=== PATIENT | female | born 1955 | race Hispanic/Latino ===

== ENCOUNTER 2018-11-27 19:44 | Observation (INO) | payer BC ==
[2018-11-27 20:10] VITALS: BMI 23.0
[2018-11-27] MEDS ORDERED: Oxycodone/Acetaminophen 5/325 mg Tab PO STA (20:12)
[2018-11-27] MEDS ORDERED: Naproxen 550 mg Tab PO STA (20:20)
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
[2018-11-27 21:33] LABS: BASO # 0.02 K/mm3 (0.0-2.0); BASO % 0.2 % (0.0-3.0); EOS # 0.1 (0.0-0.7); HEMOGLOBIN 14.4 g/dL (12.0-16.0); LYMPH # 1.2 (1.2-3.4); LYMPH % 13.9 % (22.0-35.0); MEAN CORPUSCULAR HEMOGLOBIN 29.6 pg (25.0-35.0); MEAN CORPUSCULAR HGB CONC 34.4 g/dl (31.0-37.0); MEAN PLATELET VOLUME 9.9 fl (7.0-11.0); MONO # 0.6 (0.1-0.6); MONO % 6.9 % (1.0-6.0); RBC 4.87 10^6/uL (3.5-6.1); RED CELL DISTRIBUTION WIDTH 12.6 % (11.5-14.5); WHITE BLOOD COUNT 8.9 10^3/uL (4.5-11.0)
[2018-11-27 21:42] LABS: INR 1.05; PARTIAL THROMBOPLASTIN TIME 30.9 Seconds (26.9-38.3); PROTHROMBIN TIME 11.7 SECONDS (9.4-12.5)
[2018-11-27 21:43] LABS: ALB/GLOB RATIO 1.2 (1.1-1.8); ALBUMIN 4.7 g/dL (3.0-4.8); BLOOD UREA NITROGEN 21 mg/dL (7-21); CALCIUM 9.7 mg/dL (8.4-10.5); GFR NON-AFRICAN AMERICAN > 60
[2018-11-27 22:03] LABS: ALT/SGPT 23 U/L (7-56); AST/SGOT 44 U/L (14-36)
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
[2018-11-28] MEDS ORDERED: Oxycodone/Acetaminophen 2.5/325 mg Tab PO PRN (00:21)
[2018-11-28] MEDS ORDERED: POLYETHYLENE GLYCOL 3350 17 GM/Dose PACKET PO PRN (00:27)
[2018-11-28] MEDS: Lactated Ringer's 1,000 ML IV SCH ×2 (00:31→13:44)
[2018-11-28] MEDS: Oxycodone/Acetaminophen 5/325 mg Tab PO PRN (02:01)
[2018-11-28] MEDS: Levothyroxine 50 MCG TAB PO SCH (06:18)
[2018-11-28 08:01] LABS: BASO # 0.02 K/mm3 (0.0-2.0); BASO % 0.3 % (0.0-3.0); EOS # 0.1 (0.0-0.7); EOS % 1.4 % (1.5-5.0); LYMPH # 1.7 (1.2-3.4); LYMPH % 27.9 % (22.0-35.0); MEAN CELL VOLUME 86.1 fl (80.0-105.0); MEAN CORPUSCULAR HEMOGLOBIN 28.7 pg (25.0-35.0); MEAN CORPUSCULAR HGB CONC 33.3 g/dl (31.0-37.0); MEAN PLATELET VOLUME 9.6 fl (7.0-11.0); MONO # 0.6 (0.1-0.6); MONO % 9.7 % (1.0-6.0); RBC 4.32 10^6/uL (3.5-6.1); RED CELL DISTRIBUTION WIDTH 12.6 % (11.5-14.5); WHITE BLOOD COUNT 6.2 10^3/uL (4.5-11.0)
[2018-11-28 08:12] LABS: HEMOGLOBIN 12.4 g/dL (12.0-16.0)
[2018-11-28 08:39] LABS: FREE T4 1.27 ng/dL (0.78-2.19)
[2018-11-28 08:41] LABS: LDL CHOLESTEROL 74 mg/dL (0-129)
[2018-11-28 08:42] LABS: ALB/GLOB RATIO 1.2 (1.1-1.8); ALBUMIN 3.7 g/dL (3.0-4.8); ALT/SGPT 26 U/L (7-56); AST/SGOT 28 U/L (14-36); BLOOD UREA NITROGEN 19 mg/dL (7-21); GFR NON-AFRICAN AMERICAN > 60; HDL CHOLESTEROL 40 mg/dL (29-60)
[2018-11-28] MEDS: Metoprolol Succinate 25 mg XL Tab PO SCH (09:55)
--- NOTE | 2018-11-28 11:13 | CARD ---
APPROVED REPORT Date of service: 11/27/2018 EKG Measurement Heart [id number] <Conclusion> Sinus rhythm with short IA Otherwise normal ECG
[2018-11-28] MEDS ORDERED: Midazolam 2 MG/2 ML VIAL ONE (12:24)
[2018-11-28] MEDS ORDERED: Propofol 10 mg/ml Inj (20 ML) ONE (12:24)
[2018-11-28] MEDS ORDERED: Bupivacaine 0.25% Inj(30mL) ONE (12:31)
[2018-11-28] MEDS ORDERED: EPINEPHrine 1 mg/ml (1:1000) Inj ONE (12:31)
[2018-11-28] MEDS ORDERED: Phenylephrine 10 mg/ml Inj ONE (12:58)
--- NOTE | 2018-11-28 13:05 | RAD ---
Date of service: 11/27/2018 HISTORY: admission COMPARISON: None available. FINDINGS: LUNGS: Lung swann appear mildly hyperinflated; rule underlying COPD.. Mild bibasilar atelectasis and or scarring changes right greater than left. Tiny nodular density noted in the lung apices bilaterally possibly representing small granulomata. PLEURA: No significant pleural effusion identified, no pneumothorax apparent. CARDIOVASCULAR: No aortic atherosclerotic calcification present. Normal cardiac size. No pulmonary vascular congestion. OSSEOUS STRUCTURES: No significant abnormalities. VISUALIZED UPPER ABDOMEN: Normal. OTHER FINDINGS: None. IMPRESSION: Lung swann appear mildly hyperinflated; rule underlying COPD.. Mild bibasilar atelectasis and or scarring changes right greater than left. Tiny nodular density noted in the lung apices bilaterally possibly representing small granulomata.
--- NOTE | 2018-11-28 13:12 | RAD ---
Date of service: 11/27/2018 PROCEDURE: Radiographs of the right elbow. HISTORY: elbow pain s/p trauma COMPARISON: Comparison made with concurrent radiographs of the right humerus and right forearm. FINDINGS: BONES: Mildly displaced comminuted fracture of the proximal right ulna. There is also a comminuted apparent intra-articular fracture of the neck of the radius. Surrounding soft tissue swelling. In situ ORIF plate attached to the distal right radius... Old unfused fracture deformity of distal ulna styloid. JOINTS: Normal. No osteoarthritis. SOFT TISSUES: Normal. JOINT EFFUSION: None. OTHER FINDINGS: None. IMPRESSION: Mildly displaced comminuted fracture of the proximal right ulna. There is also a comminuted apparent intra-articular fracture of the neck of the radius. Surrounding soft tissue swelling. In situ ORIF plate attached to the distal right radius... Old unfused fracture deformity of distal ulna styloid.
--- NOTE | 2018-11-28 13:13 | RAD ---
PROCEDURE: Radiographs of the Right Forearm HISTORY: arm pain s/p trauma COMPARISON: Correlation made with concurrent radiographs of the left elbow and left forearm. TECHNIQUE: Frontal and lateral views obtained. FINDINGS: BONES: There is a mildly displaced comminuted fracture of the proximal right ulna.. There is also a comminuted apparent intra-articular fracture of the neck of the radius as well. There is moderate surrounding soft tissue swelling.. Note also made of an in situ ORIF attached to the distal right radius. JOINT SPACES: Joint spaces appear relatively intact so far as can be determined OTHER FINDINGS: None. IMPRESSION: There is a mildly displaced comminuted fracture of the proximal right ulna. There is also a comminuted apparent intra-articular fracture of the neck of the radius. Surrounding soft tissue swelling. In situ ORIF plate attached to the distal right radius... Old unfused fracture deformity of distal ulna styloid.
--- NOTE | 2018-11-28 13:14 | RAD ---
PROCEDURE: Radiographs of the right humerus. HISTORY: s/p truama COMPARISON: None. FINDINGS: Note that the distal right humerus incompletely visualized on this exam BONES: Normal. No fracture or focal lesion. SOFT TISSUES: Normal. OTHER FINDINGS: None. IMPRESSION: No evidence of acute displaced fracture of the right humerus
[2018-11-28] MEDS ORDERED: Succinylcholine 200 mg/10 ml Inj IV ONE (13:15)
[2018-11-28] MEDS ORDERED: CeFAZolin 1 gm in NS 100ml IVPB ONE (13:25)
[2018-11-28] MEDS ORDERED: Lidocaine 1% w Epi 1:100,000 Inj ONE (15:24)
[2018-11-28] MEDS ORDERED: HYDROmorphone 0.5 mg/0.5 ml ISec IVP PRN (15:50)
--- NOTE | 2018-11-28 15:57 | PCM.ANESB4 ---
Infraclavicular Block - Femoral Nerve Block Date of Procedure: 11/28/18 Anesthesiologist: Dr. Gonzalez Pre-Procedure Diagnosis: S/P ORIF right elbow fracture Post-Procedure Diagnosis: S/P ORIF right elbow fracture Procedure Performed: Brachial Plexus at the Infraclavicular area Right - Procedure Infraclavicular Block: The procedure was explained to the patient that it is for the post-operative pain management. Consent was obtained after a thorough discussion with the patient regarding the benefits and possible complications of local anesthetic block of the brachial plexus at the infraclavicular area. The patient was brought to the operating room and standard monitors were applied. Time-out was held with the circulating nurse to confirm the correct surgery and the appropriate block. After the surgery while still under general anesthesia, patient's head was gently rotated away from the operative right elbow and the area medial to the coracoid process and inferior to the clavicle was carefully palpated. The ultrasound transducer was then applied to the skin in the transverse plane and the brachial plexus was visualized surrounding the axillary artery and deep to the pectoralis major and minor muscles. After thorough identification, this area was prepped with Chloraprep solution. At this point, a #21 gauge Stimuplex 4-inch needle was inserted cephalad to the ultrasound transducer and inferior to the clavicle in-plane towards the posterior aspect of the axillary artery. Needle advancement was performed carefully under ultrasound visualization. After repeated negative aspiration, 5cc of 0.25% Bupivacaine with 1:200,000 epinephrine was injected and this was followed with 25cc of 0.25% Bupivacaine with 1:200,000 epinephrine. Under ultrasound guidance the local anesthetics were observed surrounding the cords of the brachial plexus. The needle was removed intact and sterile dressing was applied. The patient had stable vital signs, was conscious and in no apparent distress. The patient tolerated the infraclavicular block of the brachial plexus well with stable vital signs was subsequently awaken from anesthesia. Then transported to PACU.
[2018-11-28] MEDS ORDERED: Lactated Ringer's 1,000 ML IV SCH (16:00)
--- NOTE | 2018-11-28 17:41 | PCM.SURG1 ---
Surgeon's Initial Post Op Note - Surgeon's Notes Surgeon: trent Mounter Automatic: vanessa Type of Anesthesia: General Endo Pre-Operative Diagnosis: R elbow Montagia fracture Operative Findings: see dictation Post-Operative Diagnosis: same Operation Performed: radial head arthroplasty and proximal ulna ORIF Specimen/Specimens Removed: radial head Estimated Blood Loss: EBL {In ML}: 10 Post-Op Condition: Good Date of Surgery/Procedure: 11/28/18 Time of Surgery/Procedure: 01:00
[2018-11-29] MEDS: Levothyroxine 50 MCG TAB PO SCH (04:59)
[2018-11-29] MEDS: Oxycodone/Acetaminophen 5/325 mg Tab PO PRN (07:00)
[2018-11-29 07:51] LABS: BASO # 0.01 K/mm3 (0.0-2.0); BASO % 0.1 % (0.0-3.0); EOS % 0.2 % (1.5-5.0); HEMOGLOBIN 12.4 g/dL (12.0-16.0); LYMPH % 11.4 % (22.0-35.0); MEAN CORPUSCULAR HEMOGLOBIN 28.9 pg (25.0-35.0); MEAN CORPUSCULAR HGB CONC 33.6 g/dl (31.0-37.0); MONO % 12.1 % (1.0-6.0); RBC 4.29 10^6/uL (3.5-6.1); RED CELL DISTRIBUTION WIDTH 12.7 % (11.5-14.5); WHITE BLOOD COUNT 8.3 10^3/uL (4.5-11.0)
[2018-11-29 08:11] LABS: ALB/GLOB RATIO 1.2 (1.1-1.8); ALBUMIN 3.9 g/dL (3.0-4.8); ALT/SGPT 17 U/L (7-56); AST/SGOT 32 U/L (14-36); BLOOD UREA NITROGEN 11 mg/dL (7-21); CALCIUM 9.2 mg/dL (8.4-10.5); GFR NON-AFRICAN AMERICAN > 60
--- NOTE | 2018-11-29 08:55 | CT ---
Date of service: 11/27/2018 PROCEDURE: HISTORY: right elbow fracture COMPARISON: TECHNIQUE: FINDINGS: Slightly comminuted, and slightly displaced intra-articular fracture of the proximal radial epiphysis and metaphysis. Slightly displaced fracture of the proximal ulnar shaft without intra-articular extension. No evidence of dislocation. IMPRESSION: As above.
[2018-11-29 09:06] VITALS: TEMP 98.4
[2018-11-29] MEDS: Metoprolol Succinate 25 mg XL Tab PO SCH (09:44)
--- NOTE | 2018-11-29 10:48 | RAD ---
Date of service: 11/28/2018 PROCEDURE: Right elbow three views HISTORY: s/p ORIF COMPARISON: TECHNIQUE: Three views FINDINGS: There has been internal fixation of the proximal radial and ulnar fractures. There is a prosthesis of the radial head. There is a plate and multiple screws in the ulna. There is anatomic alignment IMPRESSION: As above
--- NOTE | 2018-11-29 10:49 | RAD ---
Date of service: 11/28/2018 PROCEDURE: Right forearm two views HISTORY: s/p ORIF COMPARISON: TECHNIQUE: Two views FINDINGS: There is a prosthesis of the radial head. Plate and screws in the proximal ulna and a plate and screws in the distal radius. There is anatomic alignment. IMPRESSION: As above
[2018-11-29 14:44] VITALS: BP 135/74; PULSE 76; RESP 16; O2SAT 95
--- NOTE | 2018-11-29 18:34 | CP.PCM.DIS ---
<Sony Ty - Last Filed: 11/29/18 18:34> Provider - Provider Date of Admission: 11/27/18 22:45 Attending physician: Celia Corona DO Consults: 11/27/18 22:46 Consult [Physician Consult] Stat Comment: Consulting Provider: Michael Calderon Consulting Physician: Michael Calderon Reason for Consult: Elbow fracture 11/28/18 00:24 Cardiology Consult Routine Comment: Consulting Provider: Artem Vaca Consulting Physician: Artem Vaca Reason for Consult: pre-op risk assessment Time Spent in preparation of Discharge (in minutes): 40 Diagnosis - Discharge Diagnosis (1) Broken radius Status: Acute Priority: High (2) HTN (hypertension) Status: Chronic Priority: High (3) HLD (hyperlipidemia) Status: Acute Priority: High (4) Hypothyroid Status: Acute Priority: High (5) Hemorrhoid Status: Acute Priority: High Hospital Course - Lab Results Lab Results: Most Recent Lab Values WBC 8.3 10^3/uL (4.5-11.0) D 11/29/18 07:40 RBC 4.29 10^6/uL (3.5-6.1) 11/29/18 07:40 Hgb 12.4 g/dL (12.0-16.0) 11/29/18 07:40 Hct 36.9 % (36.0-48.0) 11/29/18 07:40 MCV 86.0 fl (80.0-105.0) 11/29/18 07:40 MCH 28.9 pg (25.0-35.0) 11/29/18 07:40 MCHC 33.6 g/dl (31.0-37.0) 11/29/18 07:40 RDW 12.7 % (11.5-14.5) 11/29/18 07:40 Plt Count 163 10^3/uL (120.0-450.0) 11/29/18 07:40 MPV 10.0 fl (7.0-11.0) 11/29/18 07:40 Neut % (Auto) 76.2 % (50.0-68.0) H 11/29/18 07:40 Lymph % (Auto) 11.4 % (22.0-35.0) L 11/29/18 07:40 Harper % (Auto) 12.1 % (1.0-6.0) H 11/29/18 07:40 Eos % (Auto) 0.2 % (1.5-5.0) L 11/29/18 07:40 Baso % (Auto) 0.1 % (0.0-3.0) 11/29/18 07:40 Lymph # (Auto) 1.0 (1.2-3.4) L 11/29/18 07:40 Harper # (Auto) 1.0 (0.1-0.6) H 11/29/18 07:40 Eos # (Auto) 0.0 (0.0-0.7) 11/29/18 07:40 Baso # (Auto) 0.01 K/mm3 (0.0-2.0) 11/29/18 07:40 Absolute Neuts (auto) 6.33 (1.4-6.5) 11/29/18 07:40 PT 11.7 SECONDS (9.4-12.5) 11/27/18 21:29 INR 1.05 11/27/18 21:29 APTT 30.9 Seconds (26.9-38.3) 11/27/18 21:29 Sodium 141 mmol/L (132-148) 11/29/18 07:40 Potassium 3.8 mmol/L (3.6-5.0) 11/29/18 07:40 Chloride 110 mmol/L (98-107) H 11/29/18 07:40 Carbon Dioxide 23 mmol/L (21-33) 11/29/18 07:40 Anion Gap 12 (10-20) 11/29/18 07:40 BUN 11 mg/dL (7-21) 11/29/18 07:40 Creatinine 0.7 mg/dl (0.7-1.2) 11/29/18 07:40 Est GFR ( Amer) > 60 11/29/18 07:40 Est GFR (Non-Af Amer) > 60 11/29/18 07:40 Random Glucose 127 mg/dL (70-110) H 11/29/18 07:40 Hemoglobin A1c 5.4 % (4.2-6.5) 11/28/18 07:15 Calcium 9.2 mg/dL (8.4-10.5) 11/29/18 07:40 Total Bilirubin 1.3 mg/dL (0.2-1.3) 11/29/18 07:40 AST 32 U/L (14-36) 11/29/18 07:40 ALT 17 U/L (7-56) 11/29/18 07:40 Alkaline Phosphatase 70 U/L (38-126) 11/29/18 07:40 Total Protein 7.3 g/dL (5.8-8.3) 11/29/18 07:40 Albumin 3.9 g/dL (3.0-4.8) 11/29/18 07:40 Globulin 3.3 gm/dL 11/29/18 07:40 Albumin/Globulin Ratio 1.2 (1.1-1.8) 11/29/18 07:40 Triglycerides 137 mg/dL (35-160) 11/28/18 07:15 Cholesterol 142 mg/dL (130-200) 11/28/18 07:15 LDL Cholesterol Direct 74 mg/dL (0-129) 11/28/18 07:15 HDL Cholesterol 40 mg/dL (29-60) 11/28/18 07:15 Free T4 1.27 ng/dL (0.78-2.19) 11/28/18 07:15 TSH 3rd Generation 0.83 mIU/mL (0.46-4.68) 11/28/18 07:15 - Hospital Course Hospital Course: Hospitalization Ms Westfall, 63 yo female with PMH of HTN, HLD, hypothyroidism, osteoporosis, gait dysfunction using cane came in complaining of right elbow pain status post fall. Pt was at [employer], tripped over a tile and fell, landing on her right elbow. Denies hitting her head anywhere, losing consciousness or lightheadedness. Last ate 2 hours ago. Pt underwent surgery for her broken radius. Discharge Follow up with Dr. Morales PMD within this week (11/29-12/03/18). Follow up with orthopedic surgeon Dr. Calderon by this Thursday. Continue all home medications. Follow up with PT/OT as an out patient. Sent with a prescription for Percocet for pain control. Return to ER for worsening pain, arm dysfunction, SOB, or any other concerns. - Date & Time of H&P Date of H&P: 11/29/18 Time of H&P: 07:00 Discharge Exam - Head Exam Head Exam: ATRAUMATIC, NORMAL INSPECTION, NORMOCEPHALIC - Eye Exam Eye Exam: EOMI Pupil Exam: NORMAL ACCOMODATION - ENT Exam ENT Exam: Mucous Membranes Moist - Respiratory Exam Respiratory Exam: NORMAL BREATHING PATTERN, UNREMARKABLE. absent: Accessory Muscle Use, Respiratory Distress - Cardiovascular Exam Cardiovascular Exam: RRR, +S1, +S2. absent: Diastolic murmur, Systolic Murmur - GI/Abdominal Exam GI & Abdominal Exam: Normal Bowel Sounds, Unremarkable. absent: Tenderness - Extremities Exam Extremities exam: full ROM, pedal pulses present Additional comments: right arm in alesha bandage after surgery, hand perfusing well - Neurological Exam Neurological exam: Alert, Oriented x3 - Psychiatric Exam Psychiatric exam: Normal Affect, Normal Mood - Skin Skin Exam: Dry, Intact, Warm Discharge Plan - Discharge Medications Prescriptions: Oxycodone HCl/Acetaminophen [Oxycodone-Acetaminophen 5-325] 1 each PO TID PRN #12 tablet PRN Reason: Severe post-op pain - Follow Up Plan Condition: STABLE Disposition: HOME/ ROUTINE Instructions: Elbow Fracture (DC), Preventing Falls, Upper Arm Fracture Additional Instructions: 1. Follow up with Dr. Morales PMD within this week (11/29-12/03/18) 2. Follow up with orthopedic surgeon Dr. Calderon by this Thursday 3. Maintain hydration. 4. Continue all home medications. 5. Follow up with PT/OT as an out patient. 6. You are being sent with a prescription for Percocet for pain control. 7. Return to ER for worsening pain, arm dysfunction, SOB, or any other concerns. <Rosalia Parks - Last Filed: 11/30/18 16:01> Provider - Provider Date of Admission: 11/27/18 22:45 Attending physician: Celia Corona DO Consults: 11/27/18 22:46 Consult [Physician Consult] Stat Comment: Consulting Provider: Michael Calderon Consulting Physician: Michael Calderon Reason for Consult: Elbow fracture 11/28/18 00:24 Cardiology Consult Routine Comment: Consulting Provider: Artem Vaca Consulting Physician: Artem Vaca Reason for Consult: pre-op risk assessment Hospital Course - Lab Results Lab Results: Most Recent Lab Values WBC 8.3 10^3/uL (4.5-11.0) D 11/29/18 07:40 RBC 4.29 10^6/uL (3.5-6.1) 11/29/18 07:40 Hgb 12.4 g/dL (12.0-16.0) 11/29/18 07:40 Hct 36.9 % (36.0-48.0) 11/29/18 07:40 MCV 86.0 fl (80.0-105.0) 11/29/18 07:40 MCH 28.9 pg (25.0-35.0) 11/29/18 07:40 MCHC 33.6 g/dl (31.0-37.0) 11/29/18 07:40 RDW 12.7 % (11.5-14.5) 11/29/18 07:40 Plt Count 163 10^3/uL (120.0-450.0) 11/29/18 07:40 MPV 10.0 fl (7.0-11.0) 11/29/18 07:40 Neut % (Auto) 76.2 % (50.0-68.0) H 11/29/18 07:40 Lymph % (Auto) 11.4 % (22.0-35.0) L 11/29/18 07:40 Harper % (Auto) 12.1 % (1.0-6.0) H 11/29/18 07:40 Eos % (Auto) 0.2 % (1.5-5.0) L 11/29/18 07:40 Baso % (Auto) 0.1 % (0.0-3.0) 11/29/18 07:40 Lymph # (Auto) 1.0 (1.2-3.4) L 11/29/18 07:40 Harper # (Auto) 1.0 (0.1-0.6) H 11/29/18 07:40 Eos # (Auto) 0.0 (0.0-0.7) 11/29/18 07:40 Baso # (Auto) 0.01 K/mm3 (0.0-2.0) 11/29/18 07:40 Absolute Neuts (auto) 6.33 (1.4-6.5) 11/29/18 07:40 PT 11.7 SECONDS (9.4-12.5) 11/27/18 21:29 INR 1.05 11/27/18 21:29 APTT 30.9 Seconds (26.9-38.3) 11/27/18 21:29 Sodium 141 mmol/L (132-148) 11/29/18 07:40 Potassium 3.8 mmol/L (3.6-5.0) 11/29/18 07:40 Chloride 110 mmol/L (98-107) H 11/29/18 07:40 Carbon Dioxide 23 mmol/L (21-33) 11/29/18 07:40 Anion Gap 12 (10-20) 11/29/18 07:40 BUN 11 mg/dL (7-21) 11/29/18 07:40 Creatinine 0.7 mg/dl (0.7-1.2) 11/29/18 07:40 Est GFR ( Amer) > 60 11/29/18 07:40 Est GFR (Non-Af Amer) > 60 11/29/18 07:40 Random Glucose 127 mg/dL (70-110) H 11/29/18 07:40 Hemoglobin A1c 5.4 % (4.2-6.5) 11/28/18 07:15 Calcium 9.2 mg/dL (8.4-10.5) 11/29/18 07:40 Total Bilirubin 1.3 mg/dL (0.2-1.3) 11/29/18 07:40 AST 32 U/L (14-36) 11/29/18 07:40 ALT 17 U/L (7-56) 11/29/18 07:40 Alkaline Phosphatase 70 U/L (38-126) 11/29/18 07:40 Total Protein 7.3 g/dL (5.8-8.3) 11/29/18 07:40 Albumin 3.9 g/dL (3.0-4.8) 11/29/18 07:40 Globulin 3.3 gm/dL 11/29/18 07:40 Albumin/Globulin Ratio 1.2 (1.1-1.8) 11/29/18 07:40 Triglycerides 137 mg/dL (35-160) 11/28/18 07:15 Cholesterol 142 mg/dL (130-200) 11/28/18 07:15 LDL Cholesterol Direct 74 mg/dL (0-129) 11/28/18 07:15 HDL Cholesterol 40 mg/dL (29-60) 11/28/18 07:15 Free T4 1.27 ng/dL (0.78-2.19) 11/28/18 07:15 TSH 3rd Generation 0.83 mIU/mL (0.46-4.68) 11/28/18 07:15 Attending/Attestation - Attestation I have personally seen and examined this patient.: Yes I have fully participated in the care of the patient.: Yes I have reviewed all pertinent clinical information, including history, physical exam and plan: Yes Notes (Text): 11/30/18 15:58 Attending note; Patient seen and examined with resident. Patient is alert and awake. Complaining of mild pain in the right hand. Status post right radius ORIF. Physical therapy evaluation appreciated. Home PT and OT prescription given. Patient is a 63 year old female with PMH of HTN, HLD, hypothyroidism, osteoporosis, gait dysfunction using cane is admitted with right elbow pain status post fall. Status post ORIF of right radius fracture patient will follow-up with orthopedics in 5 days. Physical therapy evaluation and education appreciated. Outpatient PT prescription given. Follow-up with PMD Dr. Morales. Follow-up with orthopedics on Thursday. 11/30/18 16:00
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
--- NOTE | 2018-11-30 16:31 | RAD ---
Date of service: 11/28/2018 PROCEDURE: Fluoroscopy up to 1 hr HISTORY: O.R.I.F. OF LEFT ELBOW FX. COMPARISON: TECHNIQUE: Fluoroscopy was provided in the operating room. 11.6 sec of fluoro time. Cumulative dose 0.31 mGy. Two images submitted FINDINGS: The study shows internal fixation of the ulnar fracture with a plate and multiple screws. There is a radial head prosthesis. There are no complicating factors IMPRESSION: As above
--- NOTE | 2018-12-07 00:58 | CON ---
DATE: 11/28/2018 INTRAOPERATIVE CONSULTATION SURGEON: Estuardo Traylor MD HISTORY OF PRESENT ILLNESS: This is a 63-year-old female, who presented to the emergency room yesterday after falling and she sustained a Monteggia fracture of her right elbow, of her proximal ulna as well as comminuted fracture of the radial head. She is going to the operating room today emergently with Dr. Michael Calderon of orthopedic surgery, who consulted me to assist him as well as do the closure because of the high risk of wound problems in this area where the skin is very thin and she is going to have plates and a radial head replacement and plates on the ulnar bone and to minimize the changes of infection especially since the patient slightly obese. So I was asked to be available and I was, I explained to Dr. Calderon I would assist him as well as close the wound in a complex manner and keep a close eye on it if there is any wound problem that develop, I would intervene later and minimize complications. Estuardo Traylor MD
--- NOTE | 2018-12-07 04:15 | OP ---
PROCEDURE DATE: 11/28/2018 PREOPERATIVE DIAGNOSES: 1. Right elbow Monteggia fracture. 2. An 18 cm open wound of right elbow. POSTOPERATIVE DIAGNOSES: 1. Right elbow Monteggia fracture. 2. An 18 cm open wound of right elbow. PROCEDURE PERFORMED: Complex repair of 18 cm right elbow open wound. ANESTHESIA: General anesthesia. INDICATIONS FOR PROCEDURE: As follows: Please refer to my separately dictated intraoperative consultation for history and physical. DESCRIPTION OF PROCEDURE: Please refer to Dr. Caldreon's portion for the ORIF of the right ulnar head fracture as well as the right radial head replacement of the elbow. When Dr. Calderon was done with his part of the operation, which I assisted him with because there was no other help of the elbow, I was left with an 18 cm open wound. I used a 0 Vicryl and I approximated some of the soft tissue overlying the hardware. I then undermined the skin to take the tension off the wound. I used a 2-0 Vicryl, lined up, and approximated the Anjelica's fascia in an interrupted fashion. I used a 3-0 Monocryl, lined up, and approximated the deep dermis in an interrupted fashion. I then had a 18 cm long open wound, which I closed with a running 3-0 Monocryl suture. After doing this, there was minimal tension and good capillary refill. I placed Mastisol, Steri-Strips and then a posterior splint in place by the orthopedic doctor. The patient awoke and transferred to the recovery room in stable condition. FINDINGS: As above. SPECIMENS: None. COMPLICATIONS: None. CONDITIONS: Stable. DRAINS: None documented. Estuardo Traylor MD
--- NOTE | 2018-12-13 06:52 | OP ---
PROCEDURE DATE: 11/28/2018 PREOPERATIVE DIAGNOSES: 1. Right elbow Monteggia fracture proximal ulna and radial head dislocation. 2. Right radial head multi-fragmented fracture with dislocation. POSTOPERATIVE DIAGNOSES: 1. Right elbow Monteggia fracture proximal ulna and radial head dislocation. 2. Right radial head multi-fragmented fracture with dislocation. PROCEDURES: 1. Right radial head fracture excision with radial head replacement arthroplasty using dynamic implant, 49761. 2. Right proximal ulnar Monteggia fracture fixation with Synthes proximal ulna plate, 58530, open reduction and internal fixation. 3. Debridement of proximal ulna and radial head, muscle bone and soft tissue, 70286. 4. Use of intraoperative fluoroscopy, 89331. SURGEON: Michael Calderon MD FOOD SERVICE SUPERVISOR: Celio Traylor MD TYPE OF ANESTHESIA: General. ESTIMATED BLOOD LOSS: Minimal. COMPLICATIONS: None. DISPOSITION: Stable to recovery room. INDICATIONS: This is a 63-year-old right-hand dominant female who presents to [facility] after sustaining a slip and fall. The patient landed on her right elbow, presents with diffuse pain, swelling, and deformity of the elbow. Initial x-rays confirmed displaced Monteggia fracture dislocation. She is indicated for the above procedure. DESCRIPTION OF PROCEDURE: The patient was brought to the operating room and placed supine on the operating room table. After general anesthesia was given and prophylactic antibiotics, a well-padded tourniquet was placed on the patient's right upper extremity. The entire extremity was then prepped and draped in standard surgical fashion. A timeout was performed. Midline posterior elbow incision was outlined. The arm was elevated and exsanguinated, and tourniquet was inflated to 250 mmHg. An incision was made through the skin only. All superficial veins were cauterized. Flaps were developed. The fracture site of the proximal ulna was identified, and hematoma was evacuated with rongeur and curettes. The bone was debrided with rongeur. The fracture ends were then also debrided and inspected. This was a mild comminuted fracture. Work was then began on exposing the radiocapitellar joint. Aldana approach was performed to expose the radiocapitellar joint. Hematoma was evacuated. The radial head was inspected. The radial head was fractured into full pieces involving the radial neck. This was not amenable to primary fixation, thus the decision for arthroplasty was undertaken. First work was began on fixing the proximal ulna and getting alignment, length, and rotation of the forearm restored. Proximal ulna fracture fragments were openly reduced anatomically and held provisionally with reduction clamp. Next, the fracture was fixed provisionally with lag screw technique. Appropriate size drill was used in a lag screw technique over the fracture site, and appropriate size screw was selected and placed in standard AO technique. This held the fracture provisionally reduced. Work was then began on placing proximal ulnar Synthes plate. Appropriate size plate was selected and placed over the proximal ulnar of the olecranon. The plate was placed in AO standard compression technique using combination of both locking and non-locking screws. The plate was of appropriate length and size which provide rigid fixation for proximal ulnar. Fluoroscopic images confirmed well aligned anatomically reduced proximal ulnar with good placement of screws, both screws were penetrating the elbow joint. Work was then began on excising the fracture fragments with the radial head. All the fracture fragments were excised and sampled on the back table for radial head trial size, a 22-size head was measured. Next, the radial bone was prepared for placement of the arthroplasty. Medullary canal of the proximal radius was grasped to appropriate size stem. Under direct visualization, a trail stem was then placed into the medullary canal with the radius followed by 22 size head. Fluoroscopic images confirmed a well reduced radiocapitellar joint with no instability, synagogue of the radiocapitellar joint line, and no overstuffing. The trail head and neck were then removed. The real implant was then opened and assembled on the back table. The stem and neck were advanced into the medullary canal with the proximal radius followed by placement of the radial head, which was secured in anatomic position with a Torque limiter screw mobile lounge driver or operator. The elbow was then taken through full range of motion. Fluoroscopic images again confirmed well aligned elbow joint with no subluxation, synagogue of length, stability and congruence of the joints. The wounds were then copiously irrigated. The radiocapitellar was closed followed by closure of the Aldana interval with 0 Vicryl. The rest of the closure was undertaken by Dr. Celio Traylor who is the plastic surgeon. Dr. Traylor's expertise was needed for tension free closure repair of the wound. After closure, the patient's arm was placed to posterior plaster splint. She tolerated the procedure well and was returned to the recovery room in excellent condition. Michael Calderon MD
== END 2018-11-29 17:39 | disposition home or self-care (01) ==
LOC: ED 19:44 → ERH 22:45 → 5RSO 11-28 01:25
PROVIDERS: ADMIT Hospitalist; ATTEND Hospitalist
DX: S52.271A Monteggia's fracture of right ulna, initial encounter for closed fracture (principal); S52.121A Displaced fracture of head of right radius, initial encounter for closed fracture; S51.001A Unspecified open wound of right elbow, initial encounter; I10 Essential (primary) hypertension; E78.5 Hyperlipidemia, unspecified; E03.9 Hypothyroidism, unspecified; M25.021 Hemarthrosis, right elbow; M81.0 Age-related osteoporosis without current pathological fracture; W01.0XXA Fall on same level from slipping, tripping and stumbling without subsequent striking against object, initial encounter; Y92.22 Religious institution as the place of occurrence of the external cause; Y93.01 Activity, walking, marching and hiking; K64.9 Unspecified hemorrhoids
CPT/HCPCS: 11044; 13121; 13122; 24635; 24666; 36415; 71045; 73060; 73080; 73090; 73200; 76000; 80053; 80061; 83036; 84439; 84443; 85025; 85610; 85730; 88307; 88311; 93005; 97162; 97530; 99285; C1713; C1776; G0378; G8978; G8979; J0171; J0330; J0690; J2001; J2250; J2370; J2704; J2765; J3010; J7120